=== PATIENT | female | born 1995 | race Caucasian/White ===

== ENCOUNTER 2019-01-07 12:33 | Emergency (ER) | payer OTHER ==
--- NOTE | 2019-01-07 13:08 | EDM.PDOC ---
ED HPI GENERAL MEDICAL PROBLEM - General Chief Complaint: Respiratory Problem Stated Complaint: COUGH Time Seen by Provider: 01/07/19 12:46 Source of Information: Reports: Patient, RN Notes Reviewed History Limitations: Reports: No Limitations - History of Present Illness INITIAL COMMENTS - FREE TEXT/NARRATIVE: Patient is a 23-year-old female who presents to the ED for evaluation of a cough that she's had for a couple weeks. The patient notes that she has had this wet cough that is intermittent for the last couple weeks that produces some yellow-colored sputum. She notes this to be roughly a quarter size amount of sputum in nature. She states over the past few days however she is developed some mid back pain due to the coughing. She denies taking any sort of medications for pain relief for this. She further denies any fevers or chills, chest pain, shortness of breath, nausea vomiting or diarrhea. She does not believe that there is any chance of at today's visit. She denies any regular medications or past medical history that she takes nor does she have a primary care provider. She relates that she does have some seasonal allergies but does not take any sort of antihistamine for this. She further notes that she is a cigarette smoker who smokes about one pack per day. She denies any alcohol or drug use at this time. Middle Back Pain Score (Numeric/FACES): 6 - Related Data Allergies Allergy/AdvReac Type Severity Reaction Status Date / Time No Known Allergies Allergy Verified 01/07/19 12:46 Home Meds: Home Meds . [No Known Home Meds] 01/07/19 [History] Past Medical History - Past Health History Medical/Surgical History: Denies Medical/Surgical History - Infectious Disease History Infectious Disease History: Reports: Chicken Pox Social & Family History - Family History Family Medical History: Noncontributory - Tobacco Use Smoking Status *Q: Current Every Day Smoker Years of Tobacco use: 5 Packs/Tins Daily: 1 ED ROS GENERAL - Review of Systems Review Of Systems: See Below Constitutional: Denies: Fever, Chills HEENT: Denies: Throat Pain, Throat Swelling Respiratory: Reports: Cough, Sputum, Other (mid back pain d/t coughing). Denies : Shortness of Breath, Wheezing Cardiovascular: Denies: Chest Pain Endocrine: Reports: No Symptoms GI/Abdominal: Denies: Diarrhea, Nausea, Vomiting : Reports: No Symptoms Musculoskeletal: Reports: Back Pain (mid back/ rib cage) Skin: Reports: No Symptoms Neurological: Reports: No Symptoms Psychiatric: Reports: No Symptoms Hematologic/Lymphatic: Reports: No Symptoms Immunologic: Reports: No Symptoms ED EXAM, GENERAL - Physical Exam Exam: See Below Exam Limited By: No Limitations General Appearance: Alert, WD/WN, No Apparent Distress Eye Exam: Bilateral Eye: EOMI, Normal Inspection, PERRL Ears: Normal External Exam Nose: Normal Inspection Throat/Mouth: Normal Inspection, Normal Lips, Normal Teeth, Normal Gums, Normal Oropharynx, Normal Voice, No Airway Compromise Head: Atraumatic, Normocephalic Neck: Normal Inspection, Supple, Non-Tender, Full Range of Motion Respiratory/Chest: No Respiratory Distress, Lungs Clear, Normal Breath Sounds, No Accessory Muscle Use, Chest Non-Tender, Other (pt mid back was mildly tender to palpation in the area that she stated hurt.) Cardiovascular: Normal Peripheral Pulses, Regular Rate, Rhythm, No Murmur GI/Abdominal: Normal Bowel Sounds, Soft, Non-Tender, No Distention, No Mass Extremities: Normal Inspection, Normal Capillary Refill Neurological: Alert, Oriented, Normal Cognition, No Motor/Sensory Deficits Psychiatric: Normal Affect, Normal Mood Skin Exam: Warm, Dry, Intact, Normal Color, No Rash Course - Vital Signs Last Recorded V/S: Last Vital Signs Temp 98.5 F 01/07/19 12:44 Pulse 78 01/07/19 12:44 Resp 18 01/07/19 12:44 BP 146/98 H 01/07/19 12:44 Pulse Ox 99 01/07/19 12:44 - Orders/Labs/Meds Orders: Active Orders 24 hr Category Date Time Status Chest 2V [CR] Stat Exams 01/07/19 13:13 Taken Labs: Laboratory Tests 01/07/19 01/07/19 01/07/19 Range/Units 13:29 13:29 13:29 WBC 7.58 (3.98-10.04) K/mm3 RBC 4.80 (3.98-5.22) M/mm3 Hgb 15.2 (11.2-15.7) gm/L Hct 43.6 (34.1-44.9) % MCV 90.8 (79.4-94.8) fl MCH 31.7 (25.6-32.2) pg MCHC 34.9 (32.2-35.5) g/dl RDW Std Deviation 40.1 (36.4-46.3) fL Plt Count 265 (182-369) K/mm3 MPV 10.2 (9.4-12.3) fl Neut % (Auto) 45.9 (34.0-71.1) % Lymph % (Auto) 41.3 (19.3-51.7) % [place] % (Auto) 8.3 (4.7-12.5) % Eos % (Auto) 4.0 (0.7-5.8) Baso % (Auto) 0.4 (0.1-1.2) % Neut # (Auto) 3.48 (1.56-6.13) K/mm3 Lymph # (Auto) 3.13 (1.18-3.74) K/mm3 [place] # (Auto) 0.63 H (0.24-0.36) K/mm3 Eos # (Auto) 0.30 (0.04-0.36) K/mm3 Baso # (Auto) 0.03 (0.01-0.08) K/mm3 Sodium 140 (136-145) mEq/L Potassium 4.1 (3.5-5.1) mEq/L Chloride 105 (98-107) mEq/L Carbon Dioxide 24 (21-32) mEq/L Anion Gap 15.1 H (5-15) BUN 9 (7-18) mg/dL Creatinine 0.8 (0.55-1.02) mg/dL Est Cr Clr Drug Dosing 101.51 mL/min Estimated GFR (MDRD) > 60 (>60) mL/min BUN/Creatinine Ratio 11.3 L (14-18) Glucose 97 (74-106) mg/dL Calcium 8.5 (8.5-10.1) mg/dL Total Bilirubin 0.2 (0.2-1.0) mg/dL AST 8 L (15-37) U/L ALT 28 (14-59) U/L Alkaline Phosphatase 57 (46-116) U/L Total Protein 7.3 (6.4-8.2) g/dl Albumin 3.9 (3.4-5.0) g/dl Globulin 3.4 gm/dL Albumin/Globulin Ratio 1.2 (1-2) HCG, Qual Negative (NEGATIVE) Meds: Medications Discontinued Medications Generic Name Dose Route Start Last Admin Trade Name Hawk PRN Reason Stop Dose Admin Ketorolac Tromethamine 60 mg 01/07/19 13:27 01/07/19 13:34 Toradol IM 01/07/19 13:28 60 mg ONETIME ONE Administration - Re-Assessments/Exams Free Text/Narrative Re-Assessment/Exam: 01/07/19 13:29 Patient presents to the ED for the evaluation of a cough that she's had for a few weeks now. Due to the length of symptoms, I did offer to do some lab work to include a CBC, CMP, hCG, also a chest x-ray and a 60 mg IM injection of Toradol for pain management. 01/07/19 14:58 patient's chest x-ray is done, and I was able to compare this to a chest x-ray done roughly one year ago and there does not appear to be any interval change, and Dr. Marcos read the previous x-ray is normal. I do not see any sort of consolidation or any other worrisome symptoms. It is likely the patient is suffering from a smoker's cough, I will recommend that she stop smoking and give other general recommendations and discharge home. Departure - Departure Time of Disposition: 15:34 Disposition: Home, Self-Care 01 Condition: Good Clinical Impression: Cough Back pain Qualifiers: Back pain location: thoracic back pain Chronicity: acute Back pain laterality: midline Qualified Code(s): M54.6 - Pain in thoracic spine - Discharge Information *PRESCRIPTION DRUG MONITORING PROGRAM REVIEWED*: No *COPY OF PRESCRIPTION DRUG MONITORING REPORT IN PATIENT LU: No Instructions: Steps to Quit Smoking, [id number], Acute Bronchitis, Adult, [place] Referrals: PCP,None [Primary Care Provider] - Forms: ED Department Discharge Additional Instructions: You were evaluated in the ED today for your cough. Your laboratory evaluation and imaging did not demonstrate any sign of a pneumonia or bacterial infection. It is likely that your symptoms could very well be due to a viral illness in nature. This also can be aggravated by smoking cigarettes, strongly recommend that you try to quit smoking and see if this does not relieve your symptoms. As for the back pain this is most likely musculoskeletal in nature due to the amount of coughing you've been doing. You may take 500 mg Tylenol or 600 mg ibuprofen every 6 hours as needed for further pain relief. Please do not exceed 4000 mg Tylenol or 3200 mg ibuprofen in a 24-hour time span. You may take some [id number] cough medication such as Robitussin or Delsym to provide you relief from the cough. Please return to the ED if your symptoms should change or worsen. - My Orders Last 24 Hours: My Active Orders 01/07/19 13:13 Chest 2V [CR] Stat - Assessment/Plan Last 24 Hours: My Active Orders 01/07/19 13:13 Chest 2V [CR] Stat
[2019-01-07] MEDS ORDERED: Ketorolac 60 MG/2 ML SDV IM ONE (13:27)
--- NOTE | 2019-01-10 12:35 | CR ---
Chest: Two views of the chest were obtained. Comparison: Prior chest x-ray of 02/23/18. Heart size and mediastinum are normal. Lungs are clear. Bony structures are unremarkable. Impression: 1. Nothing acute is appreciated on two-view chest x-ray. Diagnostic code #1
== END 2019-01-07 15:46 | disposition home or self-care (01) ==
LOC: JD.ED 12:33
DX: R05 Cough (principal); M54.6 Pain in thoracic spine; F17.210 Nicotine dependence, cigarettes, uncomplicated
CPT/HCPCS: 36415; 71046; 80053; 84703; 85025; 96372; 99283; J1885; 99282

== ENCOUNTER 2019-02-01 07:16 | Emergency (ER) | payer OTHER ==
[2019-02-01] MEDS ORDERED: Albuterol/Ipratropium 3.0-0.5 MG/3 ML Neb Soln NEB ONE (07:32)
--- NOTE | 2019-02-01 07:36 | EDM.PDOC ---
ED HPI GENERAL MEDICAL PROBLEM - General Chief Complaint: Respiratory Problem Stated Complaint: POSS H2S Time Seen by Provider: 02/01/19 07:30 Source of Information: Reports: Patient History Limitations: Reports: No Limitations - History of Present Illness INITIAL COMMENTS - FREE TEXT/NARRATIVE: 23-year-old female presents to the ED after exposure to noxious fumes. 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 This means we don't know exactly what she could've been exposed to. The ambient temperature this morning is cooler and very little winded meaning that noxious fumes would stay close to the ground and not dissipate as quickly as normal. She had some concerns about H2S gas exposure , but this would be highly unlikely though not impossible. Most of these to assess gases coming up from a well that is known to hit a H2 S gas pocket. Or recently drilled well site. She finally got past this vehicle to get away from the exposure as the fumes were burning her eyes and her throat and making it hard to breathe. She denies cough now or sputum production. Exposure was around 0600 hrs. this morning and she was seen in the ED approximately 90 minutes after this exposure. She still feels unwell with a feeling of incomplete ability to get a deep breath. She is quite anxious. She is erythematous on her facial skin and skin of upper arms and anterior chest . Possible carbon monoxide poisoning. However since it has been an hour and half since exposure I expect her ABGs and carboxyhemoglobin levels to be fairly normal. She is a cigarette smoker,one pack per day, but hasn 't smoked since the exposure. 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 Most likely exposure to diesel fuel exhaust. Perhaps high concentrations of carbon dioxide.). Denies: Activity, Exercise, Lifting, Sick Contact, Trauma Associated Symptoms: Reports: Headaches, Loss of Appetite, Malaise, Shortness of Breath (Feels like she can't get a deep breath.), Weakness. 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 [No Known Home Meds] 01/07/19 [History] Past Medical History - Past Health History Medical/Surgical History: Denies Medical/Surgical History - Infectious Disease History Infectious Disease History: Reports: Chicken Pox Social & Family History - Family History Family Medical History: Noncontributory - Tobacco Use Smoking Status *Q: Never Smoker - Caffeine Use Caffeine Use: Reports: Coffee - Living Situation & Occupation Living situation: Reports: Single Occupation: Employed ED ROS GENERAL - Review of Systems Review Of Systems: See Below Constitutional: Reports: Weakness, Decreased Appetite. Denies: Fever, Chills, Malaise HEENT: Reports: No Symptoms Respiratory: Reports: Shortness of Breath. Denies: Wheezing, Pleuritic Chest Pain, Cough, Sputum, Hemoptysis, Other Cardiovascular: Reports: Lightheadedness. Denies: Chest Pain, Blood Pressure Problem, Claudication, Dyspnea on Exertion, Edema, Orthopnea, Palpitations Endocrine: Reports: No Symptoms GI/Abdominal: Reports: No Symptoms : Reports: No Symptoms Musculoskeletal: Reports: No Symptoms Skin: Reports: Other Neurological: Reports: Dizziness, Headache Psychiatric: Reports: No Symptoms Hematologic/Lymphatic: Reports: No Symptoms Immunologic: Reports: No Symptoms ED EXAM, GENERAL - Physical Exam Exam: See Below Exam Limited By: No Limitations General Appearance: Alert, WD/WN, Anxious, Moderate Distress, Other (Vital signs show temperature 36.6. Pulse 81 and sinus respiratory is 20 O2 sats 100% on room air. BP 1 5396 due to her being quite apprehensive.) Eye Exam: Bilateral Eye: Normal Inspection, PERRL Throat/Mouth: Normal Inspection, Normal Lips, Normal Teeth, Normal Oropharynx Head: Atraumatic, Normocephalic Neck: Normal Inspection, Supple, Non-Tender, Full Range of Motion. No: Lymphadenopathy (L), Lymphadenopathy (R) Respiratory/Chest: No Respiratory Distress, Lungs Clear, Normal Breath Sounds, No Accessory Muscle Use, Chest Non-Tender, Respiratory Distress (Mild tachypnea due to mild hyperventilation.) Cardiovascular: Normal Peripheral Pulses, Regular Rate, Rhythm, No Edema, No Gallop, No Murmur, No Rub Peripheral Pulses: 3+: Posterior Tibial (L), Posterior Tibial (R), Dorsalis Pedis (L), Dorsalis Pedis (R) Neurological: Alert, Oriented, CN II-XII Intact, Normal Cognition, Normal Gait, No Motor/Sensory Deficits Psychiatric: Anxious Skin Exam: Warm, Dry, Erythema (Patches of erythema shoulders upper arms the shape of her neck face. This is more due to vasodilatation from anxiety.) Course - Vital Signs Last Recorded V/S: Last Vital Signs Temp 36.6 C 02/01/19 07:19 Pulse 81 02/01/19 07:19 Resp 20 02/01/19 07:19 BP 153/96 H 02/01/19 07:19 Pulse Ox 100 02/01/19 08:16 - Orders/Labs/Meds Orders: Active Orders 24 hr Category Date Time Status RT Aerosol Therapy [RC] ASDIRECTED Care 02/01/19 07:32 Active Chest 1V Frontal [CR] Stat Exams 02/01/19 07:30 Taken ABG [BLOOD GAS ARTERIAL] [BG] Stat Lab 02/01/19 08:00 Results CARBOXYHEMOGLOBIN [BG] Stat Lab 02/01/19 08:00 Results Labs: Laboratory Tests 02/01/19 Range/Units 08:00 Puncture Site Rt radial ABG pH 7.42 (7.35-7.45) ABG pCO2 34.6 L (35.0-45.0) mmHg ABG pO2 125.0 H (80.0-100.0) mmHg ABG HCO3 21.8 L (22.0-26.0) meq/L ABG O2 Saturation 99.2 H (96.0-97.0) % ABG Base Excess -1.6 (-2-2.0) ABG Carboxyhemoglobin 3.1 H (0.00-1.50) %THgb Marv Test Positive A-a Gradient 32 mmHg O2 Delivery Device Nasal cannula Oxygen Flow Rate 2.0 FiO2 28.00 (21.00-100.00) % Meds: Medications Discontinued Medications Generic Name Dose Route Start Last Admin Trade Name Hawk PRN Reason Stop Dose Admin Albuterol/Ipratropium 3 ml 02/01/19 07:32 02/01/19 08:16 Duoneb 3.0-0.5 Mg/3 Ml NEB 02/01/19 07:33 3 ml ONETIME ONE Administration - Radiology Interpretation Free Text/Narrative:: 23-year-old female presents to the ED today after being exposed to noxious fumes from 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 Should follow this tanker truck into [employer] work site for about 3 miles. Should feel unwell with a tingling sensation all over her headache and then developed increasing troubles breathing. She then decided to speed up and passed his vehicle and things did improve but she still feels unwell. She most likely was exposed to high levels of exhaust from diesel truck which may not move much off the roadway this morning because of the ambient temperature and no wheezing. Therefore possibility of carbon monoxide poisoning could've occurred. She is a smoker but has not smoked yet this morning. It's been an hour and a half since exposure to the noxious fumes and ABGs aren't carboxyhemoglobin will be done but they're likely to be positive. She'll be placed on oxygen 3 L/m minute by nasal cannula. She'll be given a DuoNeb and have one view x-ray done. - Re-Assessments/Exams Free Text/Narrative Re-Assessment/Exam: 02/01/19 08:01 chest x-ray done portably reveals a poor inspirational film. There is some basilar atelectasis right lower lobe. No other pulmonary infiltrates evident. Cardiac silhouette is within normal limits. 02/01/19 08:11 ABG `s have been completed. PH is 7.42 with a PCO2 of 34.6. PO2 is 125 on 3 L.. Bicarbonate is 21.8. O2 sats 99.2%. Carboxyhemoglobin is 3.1 this is normal for a cigarette smoker. 02/01/19 08:46 patient's rash is now gone. She doesn't think she feels much better after the inhalational treatment or oxygen that's been given to her by nasal cannula. I think at present she is quite anxious. However her vital signs remained stable and chest x-ray was normal. Patient reassured in this regard. Advised cigarettes the day off so that she can eat and drink normally. Return to work tomorrow without any restrictions. Departure - Departure Time of Disposition: 08:40 Disposition: Home, Self-Care 01 Condition: Fair Clinical Impression: Inhalation of noxious fumes Qualifiers: Encounter type: initial encounter Injury intent: accidental or unintentional Qualified Code(s): T59.91XA - Toxic effect of unspecified gases, fumes and vapors, accidental (unintentional), initial encounter - Discharge Information *PRESCRIPTION DRUG MONITORING PROGRAM REVIEWED*: Not Applicable *COPY OF PRESCRIPTION DRUG MONITORING REPORT IN PATIENT LU: Not Applicable Instructions: Shortness of Breath, Adult, [id number] Referrals: PCP,None [Primary Care Provider] - Forms: ED Department Discharge, ED Return to Work/School Form Additional Instructions: Evaluation the emergency room this morning after being exposed to noxious fumes in the workplace this morning. Noxious fumes view to be coming from the rear of a take her truck hauling hazardous waste. If all this truck for approximately [address] and finally were able to get by the truck with improvement in exposure symptoms. It's unlikely to have been H2 as gas exposure. This is not impossible. Usually they're hauling wastewater which can contain multiple chemicals and petrochemicals such as methane etc. Oxygen level in the emergency department is 100% on room air. You placed on oxygen until carboxyhemoglobin levels were done and they proved to be within normal range for a smoker.Signs of carbon monoxide poisoning. Stress gas exposure is unmeasurable. It causes shortness of breath and loss of consciousness due to lack of ability to transport oxygen in her bloodstream. It's highly unlikely that you're exposed to H2 S. Noxious fumes likely contained a host of unknown chemicals. Suggest taking rest the day off and staying away from noxious fumes for today. He did drink per normal. May have a mild headache for a period of time and may also feel mildly nauseated for a period of time depending length of time of exposure. May return to work tomorrow without any restrictions. - My Orders Last 24 Hours: My Active Orders 02/01/19 07:30 Chest 1V Frontal [CR] Stat 02/01/19 07:32 RT Aerosol Therapy [RC] ASDIRECTED 02/01/19 08:00 ABG [BLOOD GAS ARTERIAL] [BG] Stat CARBOXYHEMOGLOBIN [BG] Stat - Assessment/Plan Last 24 Hours: My Active Orders 02/01/19 07:30 Chest 1V Frontal [CR] Stat 02/01/19 07:32 RT Aerosol Therapy [RC] ASDIRECTED 02/01/19 08:00 ABG [BLOOD GAS ARTERIAL] [BG] Stat CARBOXYHEMOGLOBIN [BG] Stat
--- NOTE | 2019-02-01 09:37 | CR ---
Chest: Portable view of the chest is obtained. Comparison: Prior chest x-ray of 01/07/19. Heart size and mediastinum are normal. Lungs are clear. Bony structures are grossly intact. Impression: 1. Nothing acute is seen on portable chest x-ray. Diagnostic code #1
== END 2019-02-01 09:02 | disposition home or self-care (01) ==
LOC: JD.ED 07:16
DX: T59.91XA Toxic effect of unspecified gases, fumes and vapors, accidental (unintentional), initial encounter (principal); R06.02 Shortness of breath; F17.210 Nicotine dependence, cigarettes, uncomplicated; Z91.013 Allergy to seafood; Y92.89 Other specified places as the place of occurrence of the external cause
CPT/HCPCS: 36600; 71045; 71045-26; 82375; 82803; 94640; 99284; 99285-25; J7620-GY